=== PATIENT | female | born 1980 | race Two or more races ===

== ENCOUNTER 2022-11-25 11:49 | Emergency (ER) | payer MEDICAID, OTHER ==
[~2022-11-25] VITALS: Ht 170.2 cm; Wt 118.0 kg
[2022-11-25] MEDS ORDERED: FAMOTIDINE 20MG/2ML VIAL IV ONE (12:00)
[2022-11-25] MEDS ORDERED: SODIUM CHLORIDE 0.9% 1,000 ML IV ONE (12:00)
[2022-11-25] MEDS ORDERED: DIPHENHYDRAMINE 50MG/ML VIAL IV ONE (12:00)
[2022-11-25] MEDS ORDERED: METHYLPREDNISOLONE SOD SUCC 125 MG/2 ML VIAL IV ONE (12:00)
[2022-11-25] MEDS: ALBUTEROL (0.083%) 2.5MG/3ML NEB HHN SCH ×3 (12:30→13:56)
[2022-11-25] MEDS ORDERED: EPIN0.3P3 IM (15:26)
[2022-11-25] MEDS ORDERED: DIPH-954 MT (15:26)
[2022-11-25] MEDS ORDERED: P20 MT (15:26)
[2022-11-25 16:12] VITALS: BP 112/65
== END 2022-11-25 16:18 | disposition home or self-care (01) ==
LOC: ER 11:59
DX: T78.2XXA Anaphylactic shock, unspecified, initial encounter (principal); X58.XXXA Exposure to other specified factors, initial encounter
CPT/HCPCS: 94640; 96361; 96374; 96375; 99291; J1200; J2930; J3490; J7030; Z7610